=== PATIENT | male | born 1980 | race Caucasian/White ===

== ENCOUNTER 2018-10-24 18:25 | Emergency (ER) | payer MEDICAID ==
[~2018-10-24] VITALS: Ht 175.3 cm; Wt 59.0 kg
[~2018-10-24 18:25] MED LIST: ACET12.53 PO; BENZ1LOZ61 PO; CEPH500C5 PO; EPIN0.3P8 IM; HYDR15SO7 PO
[2018-10-24 18:28] VITALS: BP 116/73
[2018-10-24] MEDS ORDERED: acetaminophen 325mg tablet PO ONE (19:45)
[2018-10-24] MEDS ORDERED: LIDOcaine 1% w/epiNEPHrine 1:200,000 30ml vial IM ONE (19:45)
[2018-10-24] MEDS ORDERED: TETanus/Pertussis (Acell)/Diphther VAC/PF (Tdap-Adult) 0.5ml syringe IM ONE (19:45)
[2018-10-24] MEDS ORDERED: ibuprofen tablet 400 MG TABLET PO ONE (19:45)
[2018-10-24] MEDS ORDERED: SULF1TAB49 PO (19:45)
== END 2018-10-24 21:04 | disposition home or self-care (01) ==
LOC: ER 18:27
DX: L02.415 Cutaneous abscess of right lower limb (principal); F12.90 Cannabis use, unspecified, uncomplicated; F17.200 Nicotine dependence, unspecified, uncomplicated; Z88.1 Allergy status to other antibiotic agents; Z88.8 Allergy status to other drugs, medicaments and biological substances; Z88.5 Allergy status to narcotic agent; Z79.899 Other long term (current) drug therapy
CPT/HCPCS: 10060; 90471; 90715; 99283; J3490

== ENCOUNTER 2018-11-20 22:28 | Emergency (ER) | payer MEDICAID ==
[~2018-11-20] VITALS: Ht 175.3 cm; Wt 61.0 kg
[2018-11-20] MEDS ORDERED: LIDOcaine 1% 30ml preserv. free vial IJ ONE (22:55)
[2018-11-20] MEDS ORDERED: TETanus/Pertussis (Acell)/Diphther VAC/PF (Tdap-Adult) 0.5ml syringe IM ONE (22:55)
[2018-11-20] MEDS ORDERED: SULF1TAB49 PO (23:28)
[2018-11-20] MEDS ORDERED: sulfamethoxazole/trimethoprim DS (800/160mg) tablet PO ONE (23:30)
[2018-11-20 23:45] VITALS: BP 121/92
== END 2018-11-20 23:49 | disposition home or self-care (01) ==
LOC: ER 22:28
DX: L02.511 Cutaneous abscess of right hand (principal); L03.011 Cellulitis of right finger; F12.90 Cannabis use, unspecified, uncomplicated; Z88.1 Allergy status to other antibiotic agents; Z88.5 Allergy status to narcotic agent; Z88.8 Allergy status to other drugs, medicaments and biological substances; Z79.899 Other long term (current) drug therapy
CPT/HCPCS: 26010; 90715; 99283; J3490

== ENCOUNTER 2020-05-17 16:07 | Emergency (ER) | payer MEDICAID ==
[~2020-05-17] VITALS: Ht 175.3 cm; Wt 64.9 kg
[~2020-05-17 16:07] MED LIST changes: -CEPH500C5 PO
[2020-05-17 16:13] VITALS: BP 123/72
[2020-05-17] MEDS ORDERED: DOXY100C2 PO (17:09)
== END 2020-05-17 17:37 | disposition home or self-care (01) ==
LOC: ER 16:08
DX: L02.415 Cutaneous abscess of right lower limb (principal); F12.10 Cannabis abuse, uncomplicated; Z88.1 Allergy status to other antibiotic agents; Z88.8 Allergy status to other drugs, medicaments and biological substances; Z88.5 Allergy status to narcotic agent; Z79.899 Other long term (current) drug therapy
CPT/HCPCS: 99283

== ENCOUNTER 2021-03-25 07:57 | Emergency (ER) | payer MEDICAID ==
[~2021-03-25] VITALS: Ht 175.3 cm; Wt 62.0 kg
[~2021-03-25 07:57] MED LIST changes: -ACET12.53 PO; +ACET12.57 PO
[2021-03-25 08:09] VITALS: BP 126/85
[2021-03-25] MEDS ORDERED: mupirocin 2% ointment 22GM TP STA (09:20)
[2021-03-25] MEDS ORDERED: SULF1TAB49 PO (09:21)
[2021-03-25] MEDS ORDERED: CEPH-585 PO (09:23)
== END 2021-03-25 09:29 | disposition home or self-care (01) ==
LOC: ER 07:58
DX: N45.4 Abscess of epididymis or testis (principal); R10.32 Left lower quadrant pain; F12.90 Cannabis use, unspecified, uncomplicated; Z86.69 Personal history of other diseases of the nervous system and sense organs; Z88.1 Allergy status to other antibiotic agents; Z88.5 Allergy status to narcotic agent; Z88.8 Allergy status to other drugs, medicaments and biological substances; Z79.2 Long term (current) use of antibiotics; Z79.899 Other long term (current) drug therapy
CPT/HCPCS: 99283

== ENCOUNTER 2021-12-14 09:50 | Emergency (ER) | payer MEDICAID ==
[~2021-12-14] VITALS: Ht 175.3 cm; Wt 59.1 kg
[~2021-12-14 09:50] MED LIST changes: -BENZ1LOZ61 PO; +BENZ1LOZ74 PO; +CEPH-585 PO
[2021-12-14] MEDS ORDERED: dexamethasone 4mg tablet PO STA (10:49)
[2021-12-14 11:00] VITALS: BP 101/76
== END 2021-12-14 11:02 | disposition home or self-care (01) ==
LOC: ER 09:50
DX: J02.9 Acute pharyngitis, unspecified (principal); F17.200 Nicotine dependence, unspecified, uncomplicated; F12.90 Cannabis use, unspecified, uncomplicated; Z79.899 Other long term (current) drug therapy; Z88.1 Allergy status to other antibiotic agents; Z88.8 Allergy status to other drugs, medicaments and biological substances
CPT/HCPCS: 99283

== ENCOUNTER 2023-10-15 18:51 | Emergency (ER) | payer MEDICAID ==
[~2023-10-15] VITALS: Ht 177.8 cm; Wt 59.1 kg
[~2023-10-15 18:51] MED LIST changes: -CEPH-585 PO; +HYDR15SO10 PO; -HYDR15SO7 PO
[2023-10-15 19:04] VITALS: BP 114/45; PULSE 98; RESP 16; TEMP 98; O2SAT 99
[2023-10-15] MEDS ORDERED: CEPH-585 PO (21:05)
[2023-10-15] MEDS ORDERED: SULF1TAB49 PO (21:05)
[2023-10-15] MEDS: sulfamethoxazole/trimethoprim DS (800/160mg) tablet PO ONE (21:15)
[2023-10-15] MEDS: CefTRIAXone 1000mg IM Kit (w/lidocaine diluent) IM ONE (21:16)
== END 2023-10-15 21:34 | disposition home or self-care (01) ==
LOC: ER 18:52
DX: L03.90 Cellulitis, unspecified (principal); F12.90 Cannabis use, unspecified, uncomplicated; Z88.8 Allergy status to other drugs, medicaments and biological substances; Z79.899 Other long term (current) drug therapy
CPT/HCPCS: 96372; 99283; J0696

== ENCOUNTER 2024-01-14 14:57 | Emergency (ER) | payer MEDICAID ==
[~2024-01-14] VITALS: Ht 175.3 cm; Wt 59.4 kg
[2024-01-14 14:58] VITALS: BP 141/98; PULSE 109; TEMP 98.4; O2SAT 98
[2024-01-14] MEDS ORDERED: SULF1TAB48 PO (16:42)
[2024-01-14 16:44] VITALS: RESP 20
== END 2024-01-14 16:45 | disposition home or self-care (01) ==
LOC: ER 14:58
DX: L02.214 Cutaneous abscess of groin (principal); F12.90 Cannabis use, unspecified, uncomplicated; Z88.8 Allergy status to other drugs, medicaments and biological substances; Z88.1 Allergy status to other antibiotic agents; Z88.5 Allergy status to narcotic agent; Z79.899 Other long term (current) drug therapy; Z79.2 Long term (current) use of antibiotics; Z79.1 Long term (current) use of non-steroidal anti-inflammatories (NSAID)
CPT/HCPCS: 99283

== ENCOUNTER 2024-02-21 12:44 | Emergency (ER) | payer MEDICAID ==
[~2024-02-21] VITALS: Ht 177.8 cm; Wt 61.7 kg
[2024-02-21] MEDS ORDERED: SULF1TAB49 PO (13:28)
[2024-02-21] MEDS ORDERED: METR-159 PO (13:28)
[2024-02-21 13:33] VITALS: BP 118/68; PULSE 88; RESP 18; TEMP 98.5; O2SAT 99
== END 2024-02-21 13:35 | disposition home or self-care (01) ==
LOC: ER 12:44
DX: L02.215 Cutaneous abscess of perineum (principal); F12.90 Cannabis use, unspecified, uncomplicated; Z88.1 Allergy status to other antibiotic agents; Z88.5 Allergy status to narcotic agent; Z88.8 Allergy status to other drugs, medicaments and biological substances; Z79.1 Long term (current) use of non-steroidal anti-inflammatories (NSAID); Z79.899 Other long term (current) drug therapy
CPT/HCPCS: 99283

== ENCOUNTER 2024-03-27 11:09 | Emergency (ER) | payer MEDICAID ==
[~2024-03-27] VITALS: Ht 175.3 cm; Wt 59.1 kg
[2024-03-27 11:23] VITALS: TEMP 98
[2024-03-27] MEDS ORDERED: CEPH-585 PO (14:33)
[2024-03-27 14:43] VITALS: BP 110/81; PULSE 90; RESP 16; O2SAT 92
== END 2024-03-27 14:49 | disposition home or self-care (01) ==
LOC: ER 11:09
DX: L02.415 Cutaneous abscess of right lower limb (principal); F12.90 Cannabis use, unspecified, uncomplicated; Z88.8 Allergy status to other drugs, medicaments and biological substances; Z88.1 Allergy status to other antibiotic agents; Z88.5 Allergy status to narcotic agent; Z79.899 Other long term (current) drug therapy
CPT/HCPCS: 99283

== ENCOUNTER 2024-08-09 14:08 | Emergency (ER) | payer MEDICAID ==
[~2024-08-09] VITALS: Ht 175.3 cm; Wt 50.6 kg
[2024-08-09 14:11] VITALS: BP 141/87; PULSE 106; RESP 16; TEMP 97.7; O2SAT 100
[2024-08-10] MEDS ORDERED: RIFA300C65 PO (02:19)
[2024-08-10] MEDS ORDERED: SULF1TAB49 PO (02:19)
== END 2024-08-09 18:12 | disposition left against medical advice (07) ==
LOC: ER 14:09
DX: L73.1 Pseudofolliculitis barbae (principal); Z53.21 Procedure and treatment not carried out due to patient leaving prior to being seen by health care provider

== ENCOUNTER 2024-08-10 01:02 | Emergency (ER) | payer MEDICAID ==
[~2024-08-10] VITALS: Ht 175.3 cm; Wt 63.0 kg
[2024-08-10 01:06] VITALS: BP 141/88; PULSE 118; RESP 20; O2SAT 96
[2024-08-10] MEDS ORDERED: SULF1TAB49 PO (02:19)
[2024-08-10] MEDS ORDERED: RIFA300C65 PO (02:19)
[2024-08-10] MEDS: sulfamethoxazole/trimethoprim DS (800/160mg) tablet PO ONE (02:24)
[2024-08-10] MEDS: rifampin 300mg capsule PO SCH (02:24)
[2024-08-10 02:30] VITALS: TEMP 98.5
== END 2024-08-10 02:31 | disposition home or self-care (01) ==
LOC: ER 01:03
DX: L02.415 Cutaneous abscess of right lower limb (principal); F12.90 Cannabis use, unspecified, uncomplicated; F15.90 Other stimulant use, unspecified, uncomplicated; Z88.5 Allergy status to narcotic agent; Z88.0 Allergy status to penicillin; Z79.899 Other long term (current) drug therapy
CPT/HCPCS: 99283; A6258

== ENCOUNTER 2025-06-04 21:55 | Emergency (ER) | payer MEDICAID ==
[~2025-06-04] VITALS: Ht 177.8 cm; Wt 68.0 kg
[~2025-06-04 21:55] MED LIST changes: +RIFA300C65 PO
[2025-06-04 22:13] VITALS: BP 146/84; PULSE 100; RESP 15; O2SAT 98
--- NOTE | 2025-06-05 00:17 | Physician Documentation ---
History of Present Illness ~ Chief Complaint: Finger pain Stated Complaint: FINGER PAIN Time Seen by MD: 00:16 Primary Medical Doctor: [facility] HPI Patient presents to the emergency room with chief complaint of right thumb pain over the last three days. He has no idea what could have caused this. No fevers Tetanus within 5 years: Yes Medication Reconciliation Allergies: Coded Allergies: phenytoin (Unverified Allergy, Intermediate, 06/04/25) amoxicillin (Unverified Allergy, Unknown, throat swelling, 06/04/25) codeine (Unverified Allergy, Unknown, vomiting, 06/04/25) Scheduled Epinephrine (Epipen 2-Judd), 0.3 MG IM UD Rifampin (Rifampin), 1 CAP PO Q12H Sulfamethoxazole/Trimethoprim (Bactrim Ds Tablet), 1 TAB PO Q12H Scheduled PRN Acetaminophen with Codeine (Acetamin-Codein 300-30 mg/12.5), 12.5 MG PO Q4H PRN for pain Benzocaine/Menthol (Cepacol Sore Throat Lozenge), 1 GATITO PO Q2H PRN for pain Hydrocodone/Acetaminophen (Hydrocodon-Acetamin 7.5-325/15), 5-10 ML PO TID PRN for pain Past Medical History Past Medical History: Seizures Past Surgical History: no surgical history Alcohol Use: None Drug Use: marijuana, methamphetamine Lives with: Spouse Lives In: Home Review of Systems ROS All review of systems negative except as per HPI Physical Exam Vital Signs: Temperature: 96.8, Source: Temporal, Heart Rate: 100, Respiratory Rate: 15, BP: 146/84, Pulse Oximetry: 98, Weight: 68.000 Physical Exam General: Patient is awake, alert, oriented x4 in no acute distress Head: Normocephalic and atraumatic. Eyes: Conjunctival normal. EOMI. PERRL. ENT: Mucous membranes moist. Neck: Supple, trachea is midline. Chest: Clear to auscultation bilaterally without rales, rhonchi, or wheezes. There is no accessory muscle use or retractions. Cardiac: RRR without murmurs, gallops, or rubs. Extremities: Purulence noted from underneath the tip of patient's right thumb fingernail. Procedures Procedures Digital block: Status post informed verbal consent patient was sterilely cleaned and draped. 2 cc of lidocaine without epinephrine administered to patient's affected digit. Patient tolerated procedure well without complication total time of procedure 3 minutes. Incision and drainage: Status post informed verbal consent patient was cleaned with alcohol swab. 11. Blade utilized perform incision and drainage on patient's paronychia with a proximally 1 cc of purulence expressed. No foreign body underneath the nailbed could be appreciated. Patient tolerated procedure well without complication. Total time of procedure 5 minutes Progress Results/Orders Results/Orders Completed Orders - JT MERIDA MD Ondansetron Disint. Tablet (Zofran Odt T (06/05/25 00:30) Sulfamethox/Trimetho. Ds Tab (Septra Ds (06/05/25 00:30) Vital Signs 06/04/25 22:13 Temp 96.8 Pulse 100 Resp 15 B/P (MAP) 146/84 Pulse Ox 98 Medical Decision Making Additional information obtaine: old records Findings Patient presents to the emergency room for evaluation of thumb pain as per HPI. Patient is status post digital block with resulting incision and drainage with improvement. Given patient's lifestyle we will start antibiotics. General Diff Dx:Considerations: Include: Abrasion, Contusion, Fracture, Hematoma, Laceration, Malunion, Neurovascular injury, Open fracture, Sprain, Ulcer, Other Shoulder Diff Dx:Consideration: Include: AC separation, Adhesive capsulitis, Arthritis, Bicipital tendonitis, Calcific tendonitis, Cervical disc disease, Contusion, Dislocation, Fracture-humerus, Fracture-scapula, Fracture-clavicle, GB disease, Hematoma, Impingement syndrome, Myocardial infarction, Neurovascular injury, Open fracture-humerus, Open fracture-scapula, Open fracture-clavicle, Rotator cuff injury, SC dislocatoin, Sprain, Subacromial bursitis, Other Elbow Diff Dx:Considerations: Include: Abrasion, Arthritis, Contustion, DJD, Fracture-humerus, Fracture-radial head, Fracture-radius, Fracture-ulna, Gout, Hematoma, Laceration, Neurovascular injury, Olecranon bursitis, Open fracture, Osteomyelitis, Radial head subluxation, Rheumatoid arthritis, Septic, Sprain, Ulcer, Other Wrist Diff Dx:Considerations: Include: Abrasion, Arthritis, DJD, Gout, Rheumatoid, Septic, Carpal tunnel snydrome, Contusion, Dislocation, Fracture- carpal, Fracture-radius, Fracture-ulna, Ganglion, Laceration, Neurovascular injury, Open fracture, Strain, Other Hand Diff Dx:Considerations: Include: Abrasion, Arthritis, Contusion, DJD, Felon, Fracture-carpal, Fracture-metacarpal, Fracture-phalynx, Fracture-radius, Fracture-ulna, Gout, Hematoma, Herpetic carlton, Laceration, Neurovascular injury, Open fracture, Paronychia, Rheumatoid arthritis, Septic, Sprain, Subungual hematoma, Tenosynovitis, Volar plate injury, Cellulitis, Malunion, Other Finger Diff Dx:Considerations: Include: Abrasion, Cellulitis, Contusion, Dislocation, Fracture, Hematoma, Laceration, Neurovascular injury, Open fracture, Subungual hematoma, Other Departure Disposition: 01 HOME / SELF CARE / HOMELESS Impression: Primary Impression: Paronychia of finger Condition: Stable Discharge Instructions: Paronychia Additional Instructions: You may take both ibuprofen and Tylenol together for pain Referrals: NO PRIMARY CARE PROVIDER (PCP) Prescriptions Sulfamethoxazole/Trimethoprim (Bactrim Ds Tablet) 800 Mg-160 Mg Tablet 1 TAB PO Q12H for 7 Days, #14 TAB Prov: JT MERIDA MD 06/05/25 Signature Scribe Signature: No scribe Attestation: The note accurately reflects work and decisions made by me.Jt Merida MD 06/05/25 00:28 JT MERIDA MD Jun 05, 2025 00:17
[2025-06-05] MEDS ORDERED: SULF1TAB49 PO (00:28)
[2025-06-05] MEDS: ondansetron 4mg rapidly disintigrating tab PO ONE (00:46)
[2025-06-05] MEDS: sulfamethoxazole/trimethoprim DS (800/160mg) tablet PO ONE (00:46)
[2025-06-05 00:53] VITALS: TEMP 96.8
== END 2025-06-05 00:53 | disposition home or self-care (01) ==
LOC: ER 21:55
DX: L03.011 Cellulitis of right finger (principal); F12.90 Cannabis use, unspecified, uncomplicated; F15.90 Other stimulant use, unspecified, uncomplicated; Z88.5 Allergy status to narcotic agent; Z88.1 Allergy status to other antibiotic agents; Z79.899 Other long term (current) drug therapy
CPT/HCPCS: 10060; 99283; A6258; A6449